=== PATIENT | male | born 1970 | race Two or more races ===

== ENCOUNTER 2018-11-02 10:58 | Emergency (ER) | payer OTHER ==
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
[2018-11-02 12:00] VITALS: BP 120/86
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
[2018-11-02] MEDS ORDERED: CYCL10TA29 PO (12:22)
[2018-11-02] MEDS ORDERED: DICL-195 PO (12:22)
== END 2018-11-02 12:33 | disposition home or self-care (01) ==
LOC: ER 11:13
DX: M62.830 Muscle spasm of back (principal); S13.4XXA Sprain of ligaments of cervical spine, initial encounter; V49.40XA Driver injured in collision with unspecified motor vehicles in traffic accident, initial encounter
CPT/HCPCS: 72120; 99283

== ENCOUNTER 2018-12-19 13:06 | Emergency (ER) | payer SELFPAY ==
[~2018-12-19 13:06] MED LIST: CYCL10TA29 PO; DICL-195 PO
--- NOTE | 2018-12-19 18:49 | RADIOLOGY IMAGING REPORT ---
[place] [facility] [place] Vamsi Garza : 1970 MR: [id number] V: [id number] EXAM DATE: ORDERING PHYSICIAN: MYRNA SOTELO TECHNOLOGIST: Location: [facility] [place] Patient: Vamsi Garza : 1970 Visit/Account:[id number] Date of Sevice: 12/19/2018 Exam type: CHEST PA AND LAT, NECK SOFT TISSUE INDICATION: Evaluate for foreign body. COMPARISON: None available FINDINGS: Chest: 2 views of the chest. Heart size within normal limits. There is no focal infiltrate or lobar consolidation. There is no pneumothorax or pleural effusion. No radiopaque foreign body. Neck: 2 views of the neck. No visualized soft tissue thickening within the neck. Airways are widely patent. No visualized radiopaque foreign body. Mild multilevel degenerative changes within the cervical spine. Mild straightening of the normal cer vical alignment. IMPRESSION: 1. No acute findings. 2. No radiopaque foreign body. Report Dictated By: Miquel Bradley MD at 12/19/2018 6:43 PM Report E-Signed By: Miquel Bradley MD at 12/19/2018 6:45 PM WSN:[email or web address]
--- NOTE | 2018-12-19 18:50 | RADIOLOGY IMAGING REPORT ---
FACILITY: [facility] PATIENT NAME: Vamsi Garza : 1970 MR: [id number] V: [id number] EXAM DATE: ORDERING PHYSICIAN: MYRNA SOTELO TECHNOLOGIST: Location: [facility] - [place] Patient: Vamsi Garza : 1970 Visit/Account:[id number] Date of Sevice: 12/19/2018 Exam type: CHEST PA AND LAT, NECK SOFT TISSUE INDICATION: Evaluate for foreign body. COMPARISON: None available FINDINGS: Chest: 2 views of the chest. Heart size within normal limits. There is no focal infiltrate or lobar consolidation. There is no pneumothorax or pleural effusion. No radiopaque foreign body. Neck: 2 views of the neck. No visualized soft tissue thickening within the neck. Airways are widely patent. No visualized radiopaque foreign body. Mild multilevel degenerative changes within the cervical spine. Mild straightening of the normal cer vical alignment. IMPRESSION: 1. No acute findings. 2. No radiopaque foreign body. Report Dictated By: Miquel Bradley MD at 12/19/2018 6:43 PM Report E-Signed By: Miquel Bradley MD at 12/19/2018 6:45 PM WSN:[email or web address]
--- NOTE | 2019-01-12 07:52 | ER Report ---
History and Physical Time Seen By MD: 07:51 HPI/ROS CHIEF COMPLAINT: Foreign body sensation HISTORY OF PRESENT ILLNESS: 48-year-old male comes emergency Department today complaining of a sensation of foreign body and he tries to swallow patient has no dysphonia no dysphagia otherwise L tenderness with he swallows but is able to get down both liquid and solids no chest pain shortness of breath or additional complaints noted REVIEW OF SYSTEMS: Respiratory: No cough, no dyspnea. Cardiovascular: No chest pain, no palpitations. Gastrointestinal: No vomiting, no abdominal pain. Musculoskeletal: No back pain. Remainder of the 14 system rev: Yes Allergies: Coded Allergies: No Known Drug Allergies (Unverified , 11/02/18) Home Meds Active Scripts Diclofenac Sodium (DICLOFENAC SODIUM) 75 Mg Tablet.dr, 75 MG PO BID, #14 TAB Prov:RICHARDSON CADENA 11/02/18 Cyclobenzaprine Hcl (CYCLOBENZAPRINE HCL) 10 Mg Tablet, 10 MG PO TID PRN for MUSCLE SPASMS, #21 TAB Prov:RICHARDSON CADENA 11/02/18 Reviewed Nurses Notes: Yes Old Medical Records Reviewed: Yes Hx Substance Use Disorder: No Hx Alcohol Use: Yes (OCCASIONAL) Physical Exam General Appearance: The patient is alert, has no immediate need for airway protection and no current signs of toxicity. [ ] Eyes: Pupils equal and round no injection. Respiratory: Chest is non tender, lungs are clear to auscultation. Cardiac: regular rate and rhythm [ ] Gastrointestinal: Abdomen is soft and non tender, no masses, bowel sounds normal. Musculoskeletal: Neck: Neck is supple and non tender. Extremities have full range of motion and are non tender. Skin: No rashes or lesions. [ ] DIFFERENTIAL DIAGNOSIS: After history and physical exam differential diagnosis was considered for foreign body foreign-body sensation mechanical obstruction of the esophagus Medical Decision Making ED Course/Re-evaluation ED Course 48-year-old male foreign-body sensation was able to tolerate both liquids and solids x-rays soft tissue neck and chest showed no obvious foreign body no medications were required as he was able to tolerate by mouth advised him to continue monitoring her symptoms worsen to come back to the ER patient most likely had a foreign body which past and he does simply a sensation in that area this should resolve Decision to Disposition Date: January 12, 2019 Decision to Disposition Time: 07:52 Depart Departure Impression: Primary Impression: Foreign body sensation in throat Condition: Condition Unchanged Disposition: HOME OR SELF-CARE MYRNA SOTELO MD January 12, 2019 07:52
== END 2018-12-19 14:06 | disposition home or self-care (01) ==
LOC: ER 13:06
DX: R09.89 Other specified symptoms and signs involving the circulatory and respiratory systems (principal)
CPT/HCPCS: 70360; 71046; 99284